=== PATIENT | female | born 1985 | race American Indian/Alaskan Native ===

== ENCOUNTER 2017-11-25 16:04 | Outpatient (CLI) | payer OTHER ==
[2017-11-25 16:52] LABS: INR 2.44 (0.87-1.13)
== END 2017-11-25 16:05 | disposition home or self-care (01) ==
LOC: LAB 16:04
DX: I82.91 Chronic embolism and thrombosis of unspecified vein (principal)
CPT/HCPCS: 36415; 85610

== ENCOUNTER 2017-12-15 14:48 | Outpatient (CLI) | payer OTHER ==
[2017-12-15 15:29] LABS: INR 3.39 (0.87-1.13)
== END 2017-12-15 14:49 | disposition home or self-care (01) ==
LOC: LAB 14:48
DX: I82.91 Chronic embolism and thrombosis of unspecified vein (principal)
CPT/HCPCS: 36415; 85610